=== PATIENT | female | born 1995 | race Two or more races ===

== ENCOUNTER 2019-05-23 14:00 | Inpatient (IN) | payer OTHER ==
[~2019-05-23] VITALS: Ht 165.1 cm; Wt 97.5 kg
[2019-06-25] MEDS ORDERED: PRENATABS RX T1 EACH PO (06:18)
== END 2019-06-28 14:54 | DRG 788 ==
LOC: LDR 06-25 06:14 → OB/GYN 06-25 06:14
PROVIDERS: ADMIT Obstetrics & Gynecology
PROC: 4A1HXCZ Monitoring of Products of Conception, Cardiac Rate, External Approach (ICD-10-PCS; 2019-06-25)
PROC: 4A033R1 Measurement of Arterial Saturation, Peripheral, Percutaneous Approach (ICD-10-PCS; 2019-06-25)
PROC: 10D00Z1 Extraction of Products of Conception, Low, Open Approach (ICD-10-PCS; principal; 2019-06-25 17:00)
DX: O33.8 Maternal care for disproportion of other origin (principal); Z3A.40 40 weeks gestation of pregnancy; Z37.0 Single live birth